=== PATIENT | male | born 1995 | race Caucasian/White ===

== ENCOUNTER 2016-12-31 15:27 | Emergency (ER) | payer SELFPAY ==
[~2016-12-31] VITALS: Ht 165.1 cm; Wt 61.7 kg
--- NOTE | 2016-12-31 15:30 | NUR ---
PT BIB [facility] FOR ETOH INTOX. PT SMELLS OF ETOH. WAS FOUND UNCONSCIOUS IN A PARKING LOT. UNAROUSABLE TO STERNAL RUB; MD NOTIFIED. IV AGRONOMY ADVISOR. RESP EVEN UNLABORED. SKIN WARM NONDIAPHORETIC. IN ER BED 14 ON MONITOR.
[2016-12-31] MEDS ORDERED: IV SET PRIMARY 1 EA INFUS.SET MC ONE ×2 (15:32→22:44)
[2016-12-31] MEDS ORDERED: IV NS 0.9% 0 ML ONE (15:32)
[2016-12-31] MEDS ORDERED: NALOXONE PREFILLED SYRINGE 2 MG/2 ML SYRINGE ONE (15:32)
--- NOTE | 2016-12-31 16:35 | NUR ---
PT REMAINS UNAROUSABLE TO STERNAL RUB. RESP EVEN UNLABORED. VSS.
[2016-12-31 17:40] LABS: BASOPHILS % (AUTO) 0.6 % (0.0-2.0)
[2016-12-31 17:43] LABS: BASOPHILS # (AUTO) 0.1 /CMM (0.0-0.2); EOSINOPHILS # (AUTO) 0.4 /CMM (0.0-0.7); EOSINOPHILS % (AUTO) 3.9 % (0.0-6.0); HEMATOCRIT 49 % (39-51); LYMPHOCYTES # (AUTO) 2.8 /CMM (0.8-4.8); LYMPHOCYTES % (AUTO) 26.9 % (20.0-44.0); MEAN CORPUSCULAR HEMOGLOBIN 29 PG (26.0-33.0); MEAN CORPUSCULAR HGB CONC 34 g/dl (31.0-36.0); MEAN CORPUSCULAR VOLUME 85 fL (80-96); MONOCYTES # (AUTO) 0.5 /CMM (0.1-1.30); MONOCYTES % (AUTO) 5.1 % (2.0-12.0); NEUTROPHILS # (AUTO) 6.5 /CMM (1.8-8.9); NEUTROPHILS % (AUTO) 63.5 % (43.0-81.0); PLATELET COUNT (AUTO) 432 /CMM (150-450); RDW COEFFICIENT OF VARIATION 11.9 (11.5-15.0); RED BLOOD CELL COUNT(AUTO) 5.85 MIL/uL (4.5-6.0); WHITE BLOOD COUNT (AUTO) 10.3 K/uL (4.3-11.0)
--- NOTE | 2016-12-31 17:43 | NUR ---
PT RETURNED FROM CT IN STABLE CONDITION. VSS. REMAINS AT BASELINE.
[2016-12-31 17:47] LABS: CALCIUM, SERUM 8.1 mg/dL (8.5-10.1); CARBON DIOXIDE 25 mmol/L (21-32); CHLORIDE 106 mmol/L (98-107); CREATININE 0.9 mg/dL (0.6-1.3); GFR 107 mL/min (>60); GLUCOSE 125 mg/dL (74-106); POTASSIUM 3.5 mmol/L (3.5-5.1); SODIUM SERUM 145 mmol/L (136-145); UREA NITROGEN, BLOOD 8 mg/dL (7-18)
[2016-12-31 17:54] LABS: ALANINE AMINOTRANSFERASE 39 U/L (12-78); ALBUMIN 4.1 g/dL (3.4-5.0); ALCOHOL, BLOOD 508 mg/dL (0-0); ALKALINE PHOSPHATASE 138 U/L (46-116); ASPARTATE AMINOTRANSFERASE 21 U/L (15-37); BILIRUBIN,DIRECT 0.1 mg/dL (0.0-0.2); TOTAL PROTEIN, SERUM 7.5 g/dL (6.4-8.2)
[2016-12-31 18:01] LABS: ACETAMINOPHEN < 2 ug/ml (10-30); SALICYLATE 1.5 mg/dL (2.8-20.0)
[2016-12-31 18:07] LABS: BILIRUBIN,TOTAL 0.1 mg/dL (0.2-1.0)
[2016-12-31] MEDS ORDERED: IV NS 0.9% 1,000 ML ONE (22:44)
--- NOTE | 2016-12-31 22:51 | NUR ---
PT NOW AROUSABLE TO VERBAL STIMULUS. WELSH SPEAKING ONLY BUT ANSWERING QUESTIONS APPROPRIATELY.
[2016-12-31] MEDS ORDERED: IV NS 0.9% 1,000 ML BAG IV ONE (23:00)
--- NOTE | 2016-12-31 23:42 | NUR ---
REPORT GIVEN TO RADHA CHAPMAN RN FOR REESE
--- NOTE | 2017-01-01 01:00 | NUR ---
RESTING COMFORTABLY ON BED; AWAKENS TO NAME. DENIES COMPLAINT. VSS, NAD NOTED.
--- NOTE | 2017-01-01 03:00 | NUR ---
RESTING COMFORTABLY LEFT LATERAL ON BED. AWAKENS TO NAME, THEN RETURNS TO SLEEP. VSS, NAD NOTED.
[2017-01-01 03:46] VITALS: BP 125/74
--- NOTE | 2017-01-01 04:55 | NUR ---
Pt awake, alert, ambulatory with steady gait. Answers all questions appropriately. Appears clinically sober. IV removed. Catheter intact and site benign. Pressure and 4x4 applied to site. No bleeding noted. Pt does not want to wait for MD DC instructions. Instructed pt not to drive. Pt verbalized understanding of instruction. Patient eloped from facility. ER MD notified.
== END 2017-01-01 04:59 | disposition left against medical advice (07) ==
LOC: ER 15:32
DX: F10.129 Alcohol abuse with intoxication, unspecified (principal); R41.82 Altered mental status, unspecified
CPT/HCPCS: 36415; 70450; 80048; 80076; 80329; 85025; 96360; 99285; A4606; G0480 ×2; J7030; Z7610; G6039-TC; J2310